=== PATIENT | male | born 1965 | race Caucasian/White ===

== ENCOUNTER 2016-08-05 04:17 | Emergency (ER) | payer OTHER ==
[~2016-08-05] VITALS: Ht 170.2 cm; Wt 78.0 kg
[2016-08-05 04:20] VITALS: BP 184/89; PULSE 65; RESP 16; TEMP 98.2; O2SAT 99
[2016-08-05 04:36] VITALS: BP 170/81; PULSE 64; RESP 20; O2SAT 97
[2016-08-05] MEDS ORDERED: SIME125T PO (04:50)
[2016-08-05] MEDS ORDERED: CHAR280C PO (04:50)
[2016-08-05] MEDS ORDERED: ASPI325T PO (04:50)
[2016-08-05] MEDS ORDERED: SODIUM CHLORIDE 0.9% FLUSH 10 ML FLUSH IVF PRN (06:30)
[2016-08-05 06:31] VITALS: BP_SYST 152; BP_SYST 165; BP_DIAS 89; BP_DIAS 97; PULSE 61; RESP 18; O2SAT 96
[2016-08-05 06:34] VITALS: O2SAT 97
[2016-08-05 06:56] LABS: AUTOMATED NEUTROPHIL # 7.1 TH/MM3 (1.8-7.7); BASOPHIL % 0.3 % (0.0-2.0); EOSINOPHIL # 0.1 TH/MM3 (0-0.4); EOSINOPHIL % 0.6 % (0.0-4.0); HEMO FLAGS DIFF FINAL; LYMPH % 18.9 % (9.0-44.0); LYMPHOCYTE # 1.8 TH/MM3 (1.0-4.8); MEAN CELL VOLUME 89.4 FL (80.0-100.0); MEAN CORPUSCULAR HEMOGLOBIN 31.5 PG (27.0-34.0); MEAN CORPUSCULAR HGB CONC 35.3 % (32.0-36.0); MONO % 7.1 % (0.0-8.0); NEUT % 73.1 % (16.0-70.0); PLATELET COUNT 166 TH/MM3 (150-450); RED BLOOD COUNT 5.14 MIL/MM3 (4.50-5.90); RED CELL DISTRIBUTION WIDTH 13.5 % (11.6-17.2); WHITE BLOOD COUNT 9.8 TH/MM3 (4.0-11.0)
[2016-08-05] MEDS ORDERED: DIATRIZOATE MEGLUM/DIATRIZOATE SOD 9 ML CUP ONE (07:10)
[2016-08-05 07:17] LABS: APTT (PATIENT) 30.7 SEC (24.3-30.1); PROTHROMBIN TIME - PATIENT 11.2 SEC (9.8-11.6)
[2016-08-05 07:19] LABS: CREATINE KINASE 172 U/L (39-308)
[2016-08-05 07:22] LABS: ANION GAP 11 MEQ/L (5-15); BICARBONATE 24.6 MEQ/L (21.0-32.0); BLOOD UREA NITROGEN 10 MG/DL (7-18); CHLORIDE 103 MEQ/L (98-107); GLOMERULAR FILTRATION RATE 113 ML/MIN (>89); POTASSIUM 3.8 MEQ/L (3.5-5.1); SODIUM (NA) 139 MEQ/L (136-145)
[2016-08-05 07:23] VITALS: BP 175/98; PULSE 67; RESP 18; O2SAT 100
[2016-08-05 07:31] LABS: CKMB 3.9 NG/ML (0.5-3.6)
--- NOTE | 2016-08-05 07:40 | PD ---
HPI Chief Complaint: Chest Pain Time Seen by Provider: 06:29 Travel History International Travel<30 days: No Contact w/Intl Traveler<30days: No Traveled to known affect area: No History of Present Illness HPI 51-year-old male came to the emergency room with history of right upper quadrant abdominal pain. Patient says that this started yesterday afternoon and since then it is getting worse. When he came to the emergency room his pain was 7 out of 10. However by the time I went to see him he said the pain had subsided and currently is 2-3 out of 10. He said he has been nauseous couple times but did not vomit. He's never had this kind of pain before. Patient is not a daily alcoholic. He does smoke cigarettes. Vital signs were stable. He is awake and answering questions appropriately. His is here as well. [facility] Past Medical History Narrative Medical List of his past medical, surgical, social and family history was reviewed from the nursing note. Cardiovascular Problems: Yes (MITRAL PROLAPSED VALVE) Diminished Hearing: No Kidney Stones: Yes Immunizations Current: Yes Past Surgical History Abdominal Surgery: Yes (UMBILICAL HERNIA REPAIR) Social History Alcohol Use: Yes ("ON SATURDAY") Tobacco Use: Yes Substance Use: No Allergies-Medications (Allergen,Severity, Reaction): Coded Allergies: Penicillin (Verified Allergy, Mild, UNKNOWN, 08/05/16) Comments List of his allergies reviewed from the nursing note. Reported Meds & Prescriptions Reported Meds & Active Scripts Active Zofran Odt (Ondansetron Odt) 4 Mg Tab 4 Mg SL Q12HR PRN Flomax (Tamsulosin HCl) 0.4 Mg Cap 0.4 Mg PO HS 7 Days Reported Charcoal 200 Mg Cap 90 Mg PO Gas-X (Simethicone) 125 Mg Tab.chew 1 PO Aspirin 325 Mg Tab 325 Mg PO DAILY Narrative Medication List of his home medications reviewed from the nursing note. Review of Systems Except as stated in HPI: all other systems reviewed are Neg Physical Exam Narrative GENERAL: Awake, alert, no obvious distress SKIN: Focused skin assessment warm/dry. HEAD: Atraumatic. Normocephalic. EYES: Pupils equal and round. No scleral icterus. No injection or drainage. ENT: No nasal bleeding or discharge. Mucous membranes pink and moist. NECK: Trachea midline. No JVD. CARDIOVASCULAR: Regular rate and rhythm. No murmur appreciated. RESPIRATORY: No accessory muscle use. Clear to auscultation. Breath sounds equal bilaterally. GASTROINTESTINAL: Abdomen soft, right upper quadrant tenderness, nondistended. Palpable liver about 5 cm below the subcostal margin. The liver appears to be rounded edge and tender on palpation MUSCULOSKELETAL: No obvious deformities. No clubbing. No cyanosis. No edema. NEUROLOGICAL: Awake and alert. No obvious cranial nerve deficits. Motor grossly within normal limits. Normal speech. PSYCHIATRIC: Appropriate mood and affect; insight and judgment normal. Data Data Last Documented VS Vital Signs Date Time Temp Pulse Resp B/P Pulse Ox O2 Delivery O2 Flow Rate FiO2 08/05/16 07:23 67 18 175/98 100 Room Air Orders Electrocardiogram (08/05/16 06:29) Basic Metabolic Panel (Bmp) (08/05/16 06:29) Ckmb (Isoenzyme) Profile (08/05/16 06:29) Complete Blood Count With Diff (08/05/16 06:29) Magnesium (Mg) (08/05/16 06:29) Prothrombin Time / Inr (Pt) (08/05/16 06:29) Act Partial Throm Time (Ptt) (08/05/16 06:29) Troponin I (08/05/16 06:29) Ecg Monitoring (08/05/16 06:29) Bilateral Bp Monitoring (08/05/16 06:29) Iv Access Insert/Monitor (08/05/16 06:29) Oximetry (08/05/16 06:29) Oxygen Administration (08/05/16 06:29) Sodium Chloride 0.9% Flush (Ns Flush) (08/05/16 06:30) Hepatic Functional Panel (08/05/16 06:46) Ct Abd/Pel W Iv Contrast(Rout) (08/05/16 ) Oral Contrast - Adult (08/05/16 06:50) Diatrizoate Liq ( Gastroview Liq) (08/05/16 07:10) CKMB (08/05/16 06:10) CKMB% (08/05/16 06:10) Iohexol 350 Inj (Omnipaque 350 Inj) (08/05/16 08:44) Labs Laboratory Tests Test 08/05/16 06:10 White Blood Count 9.8 TH/MM3 Red Blood Count 5.14 MIL/MM3 Hemoglobin 16.2 GM/DL Hematocrit 46.0 % Mean Corpuscular Volume 89.4 FL Mean Corpuscular Hemoglobin 31.5 PG Mean Corpuscular Hemoglobin 35.3 % Concent Red Cell Distribution Width 13.5 % Platelet Count 166 TH/MM3 Mean Platelet Volume 9.9 FL Neutrophils (%) (Auto) 73.1 % Lymphocytes (%) (Auto) 18.9 % Monocytes (%) (Auto) 7.1 % Eosinophils (%) (Auto) 0.6 % Basophils (%) (Auto) 0.3 % Neutrophils # (Auto) 7.1 TH/MM3 Lymphocytes # (Auto) 1.8 TH/MM3 Monocytes # (Auto) 0.7 TH/MM3 Eosinophils # (Auto) 0.1 TH/MM3 Basophils # (Auto) 0.0 TH/MM3 CBC Comment DIFF FINAL Differential Comment Prothrombin Time 11.2 SEC Prothromb Time International 1.0 RATIO Ratio Activated Partial 30.7 SEC Thromboplast Time Sodium Level 139 MEQ/L Potassium Level 3.8 MEQ/L Chloride Level 103 MEQ/L Carbon Dioxide Level 24.6 MEQ/L Anion Gap 11 MEQ/L Blood Urea Nitrogen 10 MG/DL Creatinine 0.73 MG/DL Estimat Glomerular Filtration 113 ML/MIN Rate Random Glucose 120 MG/DL Calcium Level 9.1 MG/DL Magnesium Level 2.0 MG/DL Total Bilirubin 0.7 MG/DL Direct Bilirubin 0.1 MG/DL Indirect Bilirubin 0.6 MG/DL Aspartate Amino Transf 24 U/L (AST/SGOT) Alanine Aminotransferase 37 U/L (ALT/SGPT) Alkaline Phosphatase 66 U/L Total Creatine Kinase 172 U/L Creatine Kinase MB 3.9 NG/ML Troponin I LESS THAN 0.02 NG/ML Total Protein 7.8 GM/DL Albumin 4.1 GM/DL MDM Medical Decision Making Medical Screen Exam Complete: Yes Emergency Medical Condition: Yes Medical Record Reviewed: Yes Interpretation(s) Twelve-lead EKG was reviewed by me. Normal sinus rhythm, left axis deviation, bradycardia, nonspecific ST-T wave changes. Heart rate of 58 bpm. Differential Diagnosis Hepatitis, adenocarcinoma of the liver, adenoma, fatty infiltrate Narrative Course 7:39 AM blood test was ordered. CAT scan of the abdomen and pelvis was ordered. Patient was concerned about the iodine contrast but eventually chose to get the CAT scan done. Case will be signed over to the oncoming ER physician. Procedures EKG Prior to Arrival: No Scripts Ondansetron Odt (Zofran Odt)4 Mg Tab4 Mg SL Q12HR PRN (Nausea/Vomiting) #6 TAB Ref 0 Prov:Maegan Mejía DO 08/05/16 Tamsulosin (Flomax)0.4 Mg Cap0.4 Mg PO HS 7 Days Ref 0 Prov:Maegan Mejía DO 08/05/16 Ray Griggs MD Aug 05, 2016 07:40
[2016-08-05 07:55] LABS: TOTAL BILIRUBIN ADULT 0.7 MG/DL (0.2-1.0)
[2016-08-05 07:58] LABS: INDIRECT BILIRUBIN 0.6 MG/DL (0.0-0.8)
[2016-08-05] MEDS ORDERED: IOHEXOL 350 MG/ML 10 ML VIAL (for RAD DIAG) IV ONE (08:44)
--- NOTE | 2016-08-05 09:15 | RADRPT ---
EXAM DATE/TIME: 08/05/2016 08:35 [place] COMPARISON: No previous studies available for comparison. INDICATIONS : Upper abdomen pain today. IV CONTRAST: 100 cc Omnipaque 350 (iohexol) IV ORAL CONTRAST: Prescribed oral contrast ingested. RADIATION DOSE: 10.71 CTDIvol (mGy) MEDICAL HISTORY : Hernia, umbilical. Renal calculi. SURGICAL HISTORY : Umbilical hernia repair. ENCOUNTER: Initial ACUITY: 1 day PAIN SCALE: 8/10 LOCATION: Bilateral upper quadrant TECHNIQUE: Volumetric scanning of the abdomen and pelvis was performed. Using automated exposure control and ad justment of the mA and/or kV according to patient size, radiation dose was kept as low as reasonably achievable to obtain optimal diagnostic quality images. DICOM format image data is available electro nically for review and comparison. FINDINGS: LOWER LUNGS: The visualized lower lungs are clear. LIVER: Homogeneous density without lesion. There is no dilation of the biliary tree. No calcified gallston es. SPLEEN: Normal size without lesion. PANCREAS: Within normal limits. KIDNEYS: There is hydronephrosis of the right collecting system. There is dilatation of the right ureter. Ther e is a 4 mm stone in the distal right ureter just before the right UVJ. The left kidney is unremarkab le. There is no hydronephrosis on the left side. ADRENAL GLANDS: Within normal limits. VASCULAR: There is no aortic aneurysm. BOWEL/MESENTERY: The stomach, small bowel, and colon demonstrate no acute abnormality. There is no free intraperitone al air or fluid. The appendix is unremarkable. No inflammatory changes. ABDOMINAL WALL: Within normal limits. RETROPERITONEUM: There is no lymphadenopathy. BLADDER: No wall thickening or mass. REPRODUCTIVE: Within normal limits. INGUINAL: There is no lymphadenopathy or hernia. MUSCULOSKELETAL: Within normal limits for patient age. CONCLUSION: 1. 4 mm stone in the distal right ureter causing hydronephrosis of the right kidney. 2. Otherwise, unremarkable exam. Nolan Lombardi MD on August 05, 2016 at 9:10 Board Certified Radiologist. This report was verified electronically.
[2016-08-05] MEDS ORDERED: TAMS5CAP PO (09:30)
[2016-08-05] MEDS ORDERED: ZOFR4TAB3 SL (09:30)
--- NOTE | 2016-08-05 09:30 | PD ---
Physical Exam Narrative Received sign out from previous team to follow up CT scan. 51yo M with PMH of nephrolithiasis here with right sided abdominal pain. Labs reviewed, no leukocytosis. Troponin negative. LFTs negative. Pt never had any chest pain or sob. CTa/p showed 4mm stone in distal right ureter causing hydronephrosis of the right kidney. Pt never had urinalysis and does not want it send because he wants to go home. Pt had no fever and is tolerating PO. Creatinine is normal. Abdominal pain has subsided. Return precautions given. Data Data Last Documented VS Vital Signs Date Time Temp Pulse Resp B/P Pulse Ox O2 Delivery O2 Flow Rate FiO2 08/05/16 07:23 67 18 175/98 100 Room Air 08/05/16 04:20 98.2 Orders Electrocardiogram (08/05/16 06:29) Basic Metabolic Panel (Bmp) (08/05/16 06:29) Ckmb (Isoenzyme) Profile (08/05/16 06:29) Complete Blood Count With Diff (08/05/16 06:29) Magnesium (Mg) (08/05/16 06:29) Prothrombin Time / Inr (Pt) (08/05/16 06:29) Act Partial Throm Time (Ptt) (08/05/16 06:29) Troponin I (08/05/16 06:29) Ecg Monitoring (08/05/16 06:29) Bilateral Bp Monitoring (08/05/16 06:29) Iv Access Insert/Monitor (08/05/16 06:29) Oximetry (08/05/16 06:29) Oxygen Administration (08/05/16 06:29) Sodium Chloride 0.9% Flush (Ns Flush) (08/05/16 06:30) Hepatic Functional Panel (08/05/16 06:46) Ct Abd/Pel W Iv Contrast(Rout) (08/05/16 ) Oral Contrast - Adult (08/05/16 06:50) Diatrizoate Liq ( Gastroview Liq) (08/05/16 07:10) CKMB (08/05/16 06:10) CKMB% (08/05/16 06:10) Iohexol 350 Inj (Omnipaque 350 Inj) (08/05/16 08:44) Labs Laboratory Tests Test 6/25/17 06:10 White Blood Count 9.8 TH/MM3 Red Blood Count 5.14 MIL/MM3 Hemoglobin 16.2 GM/DL Hematocrit 46.0 % Mean Corpuscular Volume 89.4 FL Mean Corpuscular Hemoglobin 31.5 PG Mean Corpuscular Hemoglobin 35.3 % Concent Red Cell Distribution Width 13.5 % Platelet Count 166 TH/MM3 Mean Platelet Volume 9.9 FL Neutrophils (%) (Auto) 73.1 % Lymphocytes (%) (Auto) 18.9 % Monocytes (%) (Auto) 7.1 % Eosinophils (%) (Auto) 0.6 % Basophils (%) (Auto) 0.3 % Neutrophils # (Auto) 7.1 TH/MM3 Lymphocytes # (Auto) 1.8 TH/MM3 Monocytes # (Auto) 0.7 TH/MM3 Eosinophils # (Auto) 0.1 TH/MM3 Basophils # (Auto) 0.0 TH/MM3 CBC Comment DIFF FINAL Differential Comment Prothrombin Time 11.2 SEC Prothromb Time International 1.0 RATIO Ratio Activated Partial 30.7 SEC Thromboplast Time Sodium Level 139 MEQ/L Potassium Level 3.8 MEQ/L Chloride Level 103 MEQ/L Carbon Dioxide Level 24.6 MEQ/L Anion Gap 11 MEQ/L Blood Urea Nitrogen 10 MG/DL Creatinine 0.73 MG/DL Estimat Glomerular Filtration 113 ML/MIN Rate Random Glucose 120 MG/DL Calcium Level 9.1 MG/DL Magnesium Level 2.0 MG/DL Total Bilirubin 0.7 MG/DL Direct Bilirubin 0.1 MG/DL Indirect Bilirubin 0.6 MG/DL Aspartate Amino Transf 24 U/L (AST/SGOT) Alanine Aminotransferase 37 U/L (ALT/SGPT) Alkaline Phosphatase 66 U/L Total Creatine Kinase 172 U/L Creatine Kinase MB 3.9 NG/ML Troponin I LESS THAN 0.02 NG/ML Total Protein 7.8 GM/DL Albumin 4.1 GM/DL MDM Supervised Visit with TOSHIA: No Diagnosis Primary Impression: Nephrolithiasis Referrals: Graeme Downing MD as needed Patient Instructions: General Instructions Departure Forms: Tests/Procedures Additional Instruction: Please follow up with urology as needed. Return to the ED if symptoms worsen. Med/Other Pt SpecificInfo: Prescription(s) given Scripts Ondansetron Odt (Zofran Odt)4 Mg Tab4 Mg SL Q12HR PRN (Nausea/Vomiting) #6 TAB Ref 0 Prov:Maegan Mejía DO 08/05/16 Tamsulosin (Flomax)0.4 Mg Cap0.4 Mg PO HS 7 Days Ref 0 Prov:Maegan Mejía DO 08/05/16 Disposition: 01 DISCHARGE HOME Condition: Stable Maegan Mejía DO Aug 05, 2016 09:30
--- NOTE | 2016-08-05 11:59 | EKG ---
Date Performed: 08/05/2016 Time Performed: 06:37:27 PTAGE: 51 years EKG: SINUS BRADYCARDIA BORDERLINE LEFT AXIS DEVIATION NONSPECIFIC T WAVE CHANGES Compared to pre vious tracing, nonspecific T wave changes are new. BORDERLINE ECG PREVIOUS TRACING : 03/08/1997 15.05 DOCTOR: Anil Spann Interpretating Date/Time 08/05/2016 11:58:51
== END 2016-08-05 09:57 | disposition home or self-care (01) ==
LOC: NEPE 04:17
DX: N20.0 Calculus of kidney (principal); R11.0 Nausea; R94.31 Abnormal electrocardiogram [ECG] [EKG]; Z72.0 Tobacco use; Z86.79 Personal history of other diseases of the circulatory system; Z87.442 Personal history of urinary calculi
CPT/HCPCS: 74177; 80048; 80076; 82550; 82552; 83735; 84484; 85025; 85610; 85730; 93005; 99285; Q9963; Q9967